=== PATIENT | female | born 1985 | race Caucasian/White ===

== ENCOUNTER → 2017-09-04 | Outpatient (CLI) | payer MEDICAID | LOC: BMCIMAGING 14:40 | PROVIDERS: ATTEND Physician Assistant Medical | DX: R22.33 Localized swelling, mass and lump, upper limb, bilateral (principal); R00.2 Palpitations ==

== ENCOUNTER → 2017-09-07 | Outpatient (CLI) | payer MEDICAID | LOC: FIMAGING 09:17 | PROVIDERS: ATTEND Physician Assistant Medical | DX: R11.0 Nausea (principal) | CPT/HCPCS: 78264; A9541 ==

== ENCOUNTER 2017-10-09 14:04 | Emergency (ER) | payer MEDICAID ==
[2017-10-09] MEDS ORDERED: NS 1,000 ML IV ONE (14:34)
--- NOTE | 2017-10-09 14:34 | EDPHY ---
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 She also states that she feels somewhat spacey today. No fevers. No trauma. No manipulation. She complains of mild chronic neck pain. She states that she goes to physical therapy for this and has had some mild improvement. 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 She had negative workup and negative testing for thoracic outlet syndrome. She was also seen by Dr. Redman from Neurology and had a negative brain MRI and negative testing for seizures. She states that she has seen multiple specialists but so far most of her testing has been negative and no specific diagnosis why she feels this way. It appears to be somewhat chronic although she states that is worsened over the last few weeks. She has been referred to a ep specialist but they did not take Medicaid. REVIEW OF SYSTEMS: Constitutional: denies: chills, fever, recent illness, recent injury EENTM: denies: blurred vision, double vision, nose congestion Respiratory: denies: cough, shortness of breath Cardiac: denies: chest pain, irregular heart rate, lightheadedness, palpitations Gastrointestinal/Abdominal: denies: abdominal pain, diarrhea, nausea, vomiting, blood streaked stools Genitourinary: denies: dysuria, frequency, hematuria, pain Musculoskeletal: See HPI Skin: denies: lesions, rash, jaundice, bruising Neurological: denies: headache, numbness, paresthesia, tingling, dizziness, weakness Hematologic/Lymphatic: denies: blood clots, easy bleeding, easy bruising Immunologic/allergic: denies: HIV/AIDS, transplant EXAM: GENERAL: Well-appearing, well-nourished and in no acute distress. HEAD: Atraumatic, normocephalic. EYES: Pupils equal round and reactive to light, extraocular movements intact, sclera anicteric, conjunctiva are normal. ENT: TMs normal, nares patent, oropharynx clear without exudates. Moist mucous membranes. NECK: Normal range of motion, supple without lymphadenopathy or JVD. No step- offs or deformities. No shifting or popping with movement. LUNGS: Breath sounds clear to auscultation bilaterally and equal. No wheezes rales or rhonchi. HEART: Regular rate and rhythm without murmurs, rubs or gallops. ABDOMEN: Soft, nontender, normoactive bowel sounds. No guarding, no rebound. No masses appreciated. BACK: No CVA tenderness, no spinal tenderness, step-offs or deformities EXTREMITIES: Normal range of motion, no pitting or edema. No clubbing or cyanosis. NEUROLOGICAL: Cranial nerves II through XII grossly intact. Normal speech, normal gait. 5/5 strength, normal movement in all extremities, normal sensation answers all questions appropriately. No apparent confusion, normal mini mental status. PSYCH: Normal mood, normal affect. SKIN: Warm, dry, normal turgor, no visible rashes or lesions. Source: Patient Exam Limitations: No limitations - Personal History LMP (Females 10-55): 1-7 Days Ago Current Tetanus/Diphtheria Vaccine: Yes - Medical/Surgical History Hx Asthma: No Hx Chronic Respiratory Disease: No Hx Diabetes: No Hx Cardiac Disease: No Hx Renal Disease: No Hx Cirrhosis: No Hx Alcoholism: No Hx HIV/AIDS: No Hx Splenectomy or Spleen Trauma: No Other PMH: DENIES - Family History Significant Family History: No pertinent family hx - Social History Smoking Status: Never smoked Alcohol Use: Sober Drug Use: None Constitutional: Initial Vital Signs Temperature (C) 36.6 C 10/09/17 14:08 Heart Rate 89 10/09/17 14:08 Respiratory Rate 18 10/09/17 14:08 Blood Pressure 125/74 H 10/09/17 14:08 O2 Sat (%) 96 10/09/17 14:08 O2 Delivery Mode Room Air Allergies/Adverse Reactions: No Known Allergies Allergy (Unverified 10/09/17 14:07) Home Medications: Medication Instructions Recorded Concerta 10/09/17 Effexor Xr 10/09/17 Medical Decision Making - Diagnostics EKG Interpretation: An EKG obtained and was read and documented in trace view. Please see trace view for full reading and report. Atrial fibrillation Imaging: Discussed imaging studies w/ body recall instructor Radiologist ED Course/Re-evaluation: I have paged her PCP office for input and recommendations but have not received a call back. 5:00 p.m. We discussed the lab and imaging results which are very reassuring. The patient remains asymptomatic. We discussed follow up with her specialists and primary. She is happy with this result declines further testing at this time. Her boyfriend is here to take her home. Differential Diagnosis: Partial list of the Differential diagnosis considered include but were not limited to; anxiety, depression, dissection, medication reaction, aneurysm and although unlikely based on the history and physical exam, I also considered hemorrhage, CVA, arrhythmia, infection. I discussed these differential diagnoses and the plan with the patient as well as the usual and expected course. The patient understands that the diagnosis is provisional and that in medicine we are not always correct and that further workup is often warranted. Usual and customary warnings were given. All of the patient's questions were answered. The patient was instructed to return to the emergency department should the symptoms at all worsen or return, otherwise to followup with the physician as we discussed. - Data Points Medications Given: Discontinued Medications Sodium Chloride (Ns) 1,000 mls @ 0 mls/hr IV EDNOW ONE; Wide Open PRN Reason: Protocol Stop: 10/09/17 14:35 Last Admin: 10/09/17 14:49 Dose: 1,000 mls Point of Care Test Results: Chemistry 10/09/17 14:54 POC Sodium 141 mEq/L mEq/L (135-145) POC Potassium 3.9 mEq/L mEq/L (3.3-5.0) POC Chloride 104 mEq/L mEq/L (97-110) POC BUN 8 mg/dL mg/dL (7-23) POC Creatinine 0.6 mg/dL mg/dL (0.6-1.0) POC Glucose 94 mg/dL mg/dL (70-100) ISTAT H&H 10/09/17 14:54 POC Hgb 11.6 gm/dL L gm/dL (12.6-16.3) POC Hct 34 % L % (38-47) Urine Collection Date 10/09/17 Collection Time 15:12 HCG Results Negative Departure - Departure Disposition: Home, Routine, Self-Care Clinical Impression: Neck pain, bilateral Condition: Fair Instructions: Neck Pain (ED) Referrals: Taryn Briones NP [Primary Care Provider] - 2-3 days, call for appt.
[2017-10-09] MEDS ORDERED: IOPAMIDOL (ISOVUE 370) 100 ML BTL IV ONE (15:04)
[2017-10-09 16:46] VITALS: BP 140/82
== END 2017-10-09 17:10 | disposition home or self-care (01) ==
DX: M54.2 Cervicalgia (principal); E86.9 Volume depletion, unspecified
CPT/HCPCS: 82435-PO; 82565-PO; 82947-PO; 84132-PO; 84295-PO; 84520-PO; 85014-PO; Q9967

== ENCOUNTER → 2018-11-04 | Outpatient (CLI) | payer MEDICAID | LOC: FIMAGING 18:19 ==